=== PATIENT | male | born 1955 | race Caucasian/White ===

== ENCOUNTER 2020-03-01 10:20 | Inpatient (IN) ==
[2020-03-01] MEDS ORDERED: SODIUM CHLORIDE 0.9% 1000ML 1,000 ML IV ONE (11:38)
--- NOTE | 2020-03-01 11:46 | Emergency Department Note ---
History of Present Illness General Chief complaint: Throat Pain Stated complaint: SENT BY NICKI HUGHES ZANA-TONSILLAR ABCESS Time Seen by Provider: 03/01/20 11:28 Source: patient and family ( who is at the bedside) Mode of arrival: ambulatory Limitations: no limitations History of Present Illness Maximum Pain Intensity: 5 This patient comes in after having a sore throat since Friday. He saw his doctor on Friday and was started on Flomax for possible allergies. he has not been able to eat or drink much since then because it hurts. He is not been drooling he has no shortness of breath or systemic complaints. No rash or hives. No nausea or vomiting. No fever or chills. No known covert exposure or flulike symptoms or aches. His is at the bedside and she has been well. No chest pain shortness of breath or cough. He does have a history of peritonsillar abscess several years ago and when he saw his doctor today he was sent up here for possible peritonsillar abscess Home Medications Home Medications Medication Instructions Recorded Confirmed Type aspirin 81 mg PO QAM 05/18/19 03/01/20 History lisinopril 20 mg PO BID 05/18/19 03/01/20 History meloxicam 15 mg PO DAILY PRN 05/18/19 03/01/20 History nitroglycerin [Nitrostat] 0.4 mg SUBLINGUAL UD PRN 05/18/19 03/01/20 History atorvastatin 80 mg PO PM 03/01/20 03/01/20 History carvedilol 6.25 mg PO BID 03/01/20 03/01/20 History fluticasone propionate 2 spray INTRANASAL DAILY 03/01/20 03/01/20 History sildenafil (pulm.hypertension) 20 mg PO UD PRN 03/01/20 03/01/20 History [Revatio] amoxicillin-pot clavulanate 1 tab PO Q12H #20 tab 03/02/20 Rx [Augmentin] methylprednisolone [Medrol (Ra)] 4 mg PO UD #21 ea 03/02/20 Rx Allergies Allergy/AdvReac Type Severity Reaction Status Date / Time No Known Allergies Allergy Unverified 03/01/20 12:28 Past Med/Surg History Medical History CAD (coronary artery disease) Hyperlipidemia Hypertension Osteoarthritis Surgical History History of arthroscopy of left shoulder History of cardiac cath 01/2009 -- C/O CHEST DISCOMFORT AND HAD STRESS TEST, THEN HEART CATH WITH 2 STENTS. 2014 -- ENZYMES ELEVATED AND SENT FOR ANOTHER HEART CATH ([facility]) AND IT WAS NORMAL. FOLLOW WITH DR AMY ALFONSO. STRESS TEST - 04/2019 AND BLOOD PRESSURE WAS ELEVATED AND INCREASE BP MEDS. History of heart artery stent 01/2009 -- C/O CHEST DISCOMFORT AND HAD STRESS TEST, THEN HEART CATH WITH 2 STENTS. 2014 -- ENZYMES ELEVATED AND SENT FOR ANOTHER HEART CATH ([facility]) AND IT WAS NORMAL. FOLLOW WITH DR AMY ALFONSO. STRESS TEST - 04/2019 AND BLOOD PRESSURE WAS ELEVATED AND INCREASE BP MEDS. Hx of colonoscopy Hx of vasectomy Family History Father Coronary heart disease Hypertension Grandmother Diabetes Social History Smoking Status: Never smoker Second Hand Exposure: No; Hx Alcohol Use: No Hx Substance Use: No Preferred Language: Central African Communication Ability: Effective Retail Product Demo Specialist Required: No Beliefs That Will Affect Care: None Current Living Situation: Spouse Feels Safe at Home: Yes Review of Systems A total of 10 systems reviewed and were otherwise negative Physical Exam Vital Signs Vital Signs - 24 hr 03/01/20 10:36 03/01/20 12:10 03/01/20 12:30 Temperature 37.2 C Temperature Source Oral Pulse Rate 72 70 Pulse Rate [Apical] 63 Pulse Rate from SpO2 Sensor 70 Pulse Rhythm Regular Pulse Strength Normal Respiratory Rate 18 18 20 Respiratory Effort / Characteristics Non-Labored Respiratory Depth Normal Respiratory Pattern Regular Blood Pressure 198/80 H 146/84 H Blood Pressure [Right Arm] 152/82 H Blood Pressure Mean 119 109 Blood Pressure Mean [Right Arm] 105 Blood Pressure Position Sitting Pulse Oximetry 98 98 97 Oxygen Delivery Method Room Air Room Air Sepsis Recent Fever Within 48 Hours No Sepsis New/Unexplained Change in Mental Status No Sepsis Action Taken by Nursing No Action Required 03/01/20 13:30 03/01/20 14:01 03/01/20 14:02 Temperature Temperature Source Pulse Rate 80 70 Pulse Rate [Apical] 70 Pulse Rate from SpO2 Sensor Pulse Rhythm Pulse Strength Respiratory Rate 23 22 16 Respiratory Effort / Characteristics Respiratory Depth Respiratory Pattern Blood Pressure 179/91 H Blood Pressure [Right Arm] 179/91 H Blood Pressure Mean 123 Blood Pressure Mean [Right Arm] 120 Blood Pressure Position Pulse Oximetry Oxygen Delivery Method Sepsis Recent Fever Within 48 Hours Sepsis New/Unexplained Change in Mental Status Sepsis Action Taken by Nursing 03/01/20 14:31 03/01/20 15:00 Temperature Temperature Source Pulse Rate 74 77 Pulse Rate [Apical] Pulse Rate from SpO2 Sensor Pulse Rhythm Pulse Strength Respiratory Rate 22 19 Respiratory Effort / Characteristics Respiratory Depth Respiratory Pattern Blood Pressure 156/91 H 157/97 H Blood Pressure [Right Arm] Blood Pressure Mean 124 111 Blood Pressure Mean [Right Arm] Blood Pressure Position Pulse Oximetry Oxygen Delivery Method Sepsis Recent Fever Within 48 Hours Sepsis New/Unexplained Change in Mental Status Sepsis Action Taken by Nursing General: Well developed well nourished [id number] middle-age male who appears in no acute distress, breathing comfortably on room air. Normal speech HEENT: Normal cephalic atraumatic. Pupils are equal round and reactive to light. Sclera anicteric. Extraocular movements are intact. Oropharynx is pink with moist mucous membranes. No swelling of the mouth lips or tongue. In the posterior oropharynx he has swelling mostly on the right but the uvula is also mildly swollen. The airway appears open there is no midline shift but there is asymmetrical swelling on the right. Findings are consistent concerning for peritonsillar abscess. Floor the mouth is soft. No evidence of Ray's angina Neck: Supple with a midline trachea. No meningeal signs or stiffness, no JVD or bruits. No Stridor. Chest: Clear to auscultation bilaterally. No wheezes or rhonchi. No increased work of breathing. Heart: Regular rate and rhythm without murmurs or gallops. Abdomen: Soft nontender, nondistended without rebound guarding or rigidity. Extremities: No cyanosis clubbing or edema. No calf tenderness or assymetry Spine/Back. Non tender to palpation. No CVA tenderness Skin: Good turgor without rashes. Neurologic exam: Cranial nerves two through 12 are intact. Motor and sensation are intact and symmetrical throughout. Course Administered Medications Discontinued Medications Aspirin (Aspirin 81 Mg Chew) 81 mg PO QAM LULY Stop: 04/01/20 08:59 Last Admin: 03/02/20 07:54 Dose: 81 mg Documented by: [id number] Atorvastatin Calcium (Atorvastatin 40 Mg Tab) 80 mg PO PM LULY Stop: 03/31/20 20:59 Last Admin: 03/01/20 20:36 Dose: 80 mg Documented by: [id number] Carvedilol (Carvedilol 6.25 Mg Tab) 6.25 mg PO BID LULY Stop: 03/31/20 20:59 Last Admin: 03/02/20 07:53 Dose: 6.25 mg Documented by: [id number] Admin: 03/01/20 20:36 Dose: 6.25 mg Documented by: [id number] Dexamethasone (Dexamethasone Sod Inj 10 Mg/Ml Vial) 10 mg IV NOW ONE Stop: 03/01/20 11:50 Last Admin: 03/01/20 12:06 Dose: 10 mg Documented by: [id number] Sodium Chloride (Nss 1000ml) 1,000 mls @ 999 mls/hr IV .Q1H1M ONE Stop: 03/01/20 12:38 Last Infusion: 03/01/20 13:07 Dose: 0 mls/hr Documented by: [id number] Admin: 03/01/20 12:06 Dose: 999 mls/hr Documented by: [id number] Ampicillin Sodium/Sulbactam Sodium 3,000 mg/ Sodium Chloride 108 mls @ 200 mls/hr IV NOW STA; Protocol Stop: 03/01/20 14:28 Last Infusion: 03/01/20 14:56 Dose: 0 mls/hr Documented by: [id number] Admin: 03/01/20 14:23 Dose: 200 mls/hr Documented by: [id number] Ampicillin Sodium/Sulbactam Sodium 3,000 mg/ Sodium Chloride 108 mls @ 200 mls/hr IV Q6H LULY; Protocol Stop: 03/11/20 19:59 Last Infusion: 03/02/20 09:06 Dose: 0 mls/hr Documented by: [id number] Admin: 03/02/20 07:53 Dose: 200 mls/hr Documented by: [id number] Infusion: 03/02/20 02:30 Dose: 0 mls/hr Documented by: [id number] Admin: 03/02/20 01:46 Dose: 200 mls/hr Documented by: [id number] Infusion: 03/01/20 21:08 Dose: 0 mls/hr Documented by: [id number] Admin: 03/01/20 20:35 Dose: 200 mls/hr Documented by: [id number] Sodium Chloride (Nss 1000ml) 1,000 mls @ 100 mls/hr IV .Q10H [facility] Stop: 03/02/20 13:14 Last Admin: 03/02/20 04:06 Dose: 100 mls/hr Documented by: [id number] Infusion: 03/02/20 03:33 Dose: 100 mls/hr Documented by: [id number] Admin: 03/01/20 17:33 Dose: 100 mls/hr Documented by: [id number] Dexamethasone Sodium Phosphate (10 mg/ Dextrose) 27.5 mls @ 100 mls/hr IV Q8H [facility] Stop: 03/31/20 19:59 Last Infusion: 03/02/20 05:19 Dose: 0 mls/hr Documented by: [id number] Admin: 03/02/20 04:58 Dose: 100 mls/hr Documented by: [id number] Infusion: 03/01/20 22:18 Dose: 0 mls/hr Documented by: [id number] Admin: 03/01/20 21:48 Dose: 100 mls/hr Documented by: [id number] Ioversol (Ioversol 100ml) 94 ml IV ONCE ONE Stop: 03/01/20 13:16 Last Admin: 03/01/20 13:16 Dose: 94 ml Documented by: [id number] Lisinopril (Lisinopril 20 Mg Tab) 20 mg PO BID [facility] Stop: 03/31/20 20:59 Last Admin: 03/02/20 07:54 Dose: 20 mg Documented by: [id number] Admin: 03/01/20 20:36 Dose: 20 mg Documented by: [id number] Medical Decision Making Differential Diagnosis Peritonsillar abscess, allergic reaction, cellulitis, tonsillitis, electrolyte or metabolic abnormality Medical Records Attestation: I reviewed the patient's medical records. Home Medications Current Medication List: was personally reviewed by me Laboratory Data Attestation: I reviewed the patient's lab results. Result diagrams: 03/02/20 06:46 03/02/20 06:46 Lab Results 03/01/20 03/01/20 03/01/20 Range/Units 12:08 12:08 12:08 WBC 11.19 H (4.8-10.8) K/uL RBC 5.05 (4.7-6.1) M/uL Hgb 15.5 (14.0-18.0) g/dL Hct 45.3 (42-52) % MCV 89.7 (80-100) fL MCH 30.7 (25-34) pg MCHC 34.2 (32-36) g/dL RDW Std Deviation 45.4 (36.4-46.3) fL RDW Coeff of Sukhjinder 13.9 (11.5-14.5) % Plt Count 197 (130-400) K/uL MPV 9.7 (7.4-10.4) fL Immature Gran % (Auto) 0.3 % Neut % (Auto) 74.5 % Lymph % (Auto) 14.2 % [place] % (Auto) 8.4 % Eos % (Auto) 2.4 % Baso % (Auto) 0.2 % Neut # (Auto) 8.34 H (1.4-6.5) K/uL Lymph # (Auto) 1.59 (1.2-3.4) K/uL [place] # (Auto) 0.94 H (0.11-0.59) K/uL Eos # (Auto) 0.27 (0-0.5) K/uL Baso # (Auto) 0.02 (0-0.2) K/uL Immature Gran # (Auto) 0.03 H (0.00-0.02) K/uL Sodium 137 (136-145) mmol/L Potassium 4.3 (3.5-5.1) mmol/L Chloride 104 (98-107) mmol/L Carbon Dioxide 27 (21-32) mmol/L Anion Gap 6.0 (3-11) BUN 17 (7-18) mg/dl Creatinine 1.20 (0.6-1.4) mg/dl Est Cr Clr Drug Dosing 60.3 ml/min Est GFR ( Amer) 73.1 Est GFR (Non-Af Amer) 63.1 BUN/Creatinine Ratio 14.4 (10-20) Glucose 99 (70-99) mg/dl Calcium 9.2 (8.5-10.1) mg/dl Total Bilirubin 2.4 H (0.2-1) mg/dl AST 19 (15-37) U/L ALT 23 (12-78) U/L Alkaline Phosphatase 131 H (45-117) U/L Total Protein 8.4 H (6.4-8.2) gm/dl Albumin 3.7 (3.4-5.0) gm/dl Globulin 4.7 H (2.5-4.0) gm/dl Albumin/Globulin Ratio 0.8 L (0.9-2) Monoscreen Negative (Negative) Imaging Data Radiologist's Impression: Study: CT soft tissue neck HISTORY:: Peritonsillar abscess COMPARISON: None. FINDINGS: The major salivary glands including parotid and submandibular glands are unremarkable. There is significant edematous change in the right peritonsillar region. There is a 1.1 x 0.9 cm mass collection versus small abscess within the central aspect of the edematous change. There is mild displacement of the airway to the left. There does not appear to be major compromise of the airway itself. All structures of the remainder of the soft tissue neck are considered unremark able. The glottic and subglottic regions are unremarkable. There are several small reactive nodes in the cervical chains bilaterally. The pulmonary apices are considered clear. IMPRESSION: 1. Considerable right peritonsillar edematous change with mild displacement of the airway to the left. 2. Small abscess located centrally within this edematous region measuring 1.1 x 0.9 cm. Blood Pressure Blood Pressure Findings: Elevated blood pressure Blood Pressure Disposition: elevated BP felt to be situational MDM Narrative This patient comes in as described above. He was placed in room C4. He looks well however his exam is concerning for possible peritonsillar abscess. In light of this concern, IV access was established and he was hydrated with with normal saline. He was given Decadron 10 mg IV and CAT scan was obtained as well as blood work. He has no significant electrolyte or metabolic abnormalities. Monospot was negative. His CAT scan does show a small peritonsillar abscess measuring 1.1 x 0.9 cm. I did consult Dr. Worthy who is the [facility] ENT physician. She recommends a medical admission. She also recommends continuing IV Unasyn additionally continue Decadron 10 mg IV every 8 hours x3. She said the patient can also eat and drink and does not have to be n.p.o. after midnight. She suspects that given these measures that the patient will in all likelihood not need surgical intervention but she can drain it if he does not get better or gets worse. Given the fact that the patient may need ENT surgery while he is admitted, she is also requested a Covid test which I ordered. COVID testing was negative[facility], IV antibiotics, observation and ENT consultation Impression & Plan Abscess, peritonsillar, Acute sore throat, Acute dehydration, Lab test negative for COVID-19 virus Discharge Plan Visit Data Chief Complaint: Throat Pain Stated Complaint: SENT BY NICKI HUGHES ZANA-TONSILLAR DEION ED Provider: Olivier Troncoso Discharge Problem: Abscess, peritonsillar, Acute sore throat, Acute dehydration, Lab test negative for COVID-19 virus Patient Disposition: Admitted As Inpatient Discharge Instructions Interventions: ED Discharge Assessment Last Done: 03/01/20 16:27
[2020-03-01] MEDS ORDERED: DEXAMETHASONE SOD INJ 10 MG/ML VIAL IV ONE (11:49)
[2020-03-01 12:25] LABS: Basophils # (auto) 0.02 K/uL (0-0.2); Basophils % (auto) 0.2 %; Eosinophils # (auto) 0.27 K/uL (0-0.5); Eosinophils % (auto) 2.4 %; Hematocrit (blood only) 45.3 % (42-52); Hemoglobin 15.5 g/dL (14.0-18.0); Immature Granulocytes # (auto) 0.03 K/uL (0.00-0.02); Immature Granulocytes % (auto) 0.3 %; Lymphocytes # (auto) 1.59 K/uL (1.2-3.4); Lymphocytes % (auto) 14.2 %; Mean Corpuscular Hemoglobin 30.7 pg (25-34); Mean Corpuscular Hgb Conc 34.2 g/dL (32-36); Mean Corpuscular Volume 89.7 fL (80-100); Mean Platelet Volume 9.7 fL (7.4-10.4); Monocytes # (auto) 0.94 K/uL (0.11-0.59); Monocytes % (auto) 8.4 %; Neutrophils # (auto) 8.34 K/uL (1.4-6.5); Neutrophils % (auto) 74.5 %; Platelet Count 197 K/uL (130-400); RDW Coefficient of Variation 13.9 % (11.5-14.5); RDW Standard Deviation 45.4 fL (36.4-46.3); Red Blood Count 5.05 M/uL (4.7-6.1); White Blood Count 11.19 K/uL (4.8-10.8)
[2020-03-01 12:41] LABS: Albumin Level 3.7 gm/dl (3.4-5.0); BUN Creatinine Ratio 14.4 (10-20); Calcium 9.2 mg/dl (8.5-10.1); Creatinine Clr Calc Pharmacy 60.3 ml/min; Est GFR (African American) 73.1; Est GFR (Non-African American) 63.1; Potassium 4.3 mmol/L (3.5-5.1)
[2020-03-01 12:44] LABS: Albumin Globulin Ratio 0.8 (0.9-2); Bilirubin,Total 2.4 mg/dl (0.2-1); Globulin 4.7 gm/dl (2.5-4.0); Total Protein 8.4 gm/dl (6.4-8.2)
[2020-03-01] MEDS ORDERED: IOVERSOL 100ml IV ONE (13:15)
--- NOTE | 2020-03-01 13:33 | CT Scan Report ---
Study: CT soft tissue neck HISTORY:: Peritonsillar abscess COMPARISON: None. FINDINGS: The major salivary glands including parotid and submandibular glands are unremarkable. There is significant edematous change in the right peritonsillar region. There is a 1.1 x 0.9 cm mass collection versus small abscess within the central aspect of the edematous change. There is mild displacement of the airway to the left. There does not appear to be major compromise of the airway itself. All structures of the remainder of the soft tissue neck are considered unremarkable. The glottic and subglottic regions are unremarkable. There are several small reactive nodes in the cervical chains bilaterally. The pulmonary apices are considered clear. IMPRESSION: 1. Considerable right peritonsillar edematous change with mild displacement of the airway to the left . 2. Small abscess located centrally within this edematous region measuring 1.1 x 0.9 cm. Electronically signed by: Jaime Austin M.D. 03/01/2020 1:32 PM
[2020-03-01] MEDS ORDERED: AMPICILLIN/SULBACTAM SOD 3,000 MG in 0.9 % SODIUM CHLORIDE 100 ML IV STA (13:56)
--- NOTE | 2020-03-01 15:36 | History & Physical Report ---
Date of Service March 01, 2020 Assessment & Plan (1) Abscess, peritonsillar: Pt is 64 y/o M with PMH CAD s/p stent in 2008, HTN, dyslipidemia presented to ER with c/o sore throat x several days. Patient states several days ago started with sore throat with radiation to right ear and having right earache. Initially seen at PCP on 02/28/2020 with reported benign exam and pt had worsening sore throat and dysphagia and seen today and referred to ER. Denies fever/chills. In ER pt afebrile, vitals stable. Pt tolerating secretions and without SOB. WBC: 11 CT SOFT TISSUE NECK: 1. Considerable right peritonsillar edematous change with mild displacement of the airway to the left. 2. Small abscess located centrally within this edematous region measuring 1.1 x 0.9 cm. (2) CAD (coronary artery disease): (3) Hypertension: (4) Hyperlipidemia: History of Present Illness Chief Complaint: Sore throat Primary Care Provider: Torito Perez MD Pt is 64 y/o M with H CAD s/p stent in 2008, HTN, dyslipidemia presented to ER with c/o sore throat x several days. Patient states several days ago started with sore throat with radiation to right ear and having right earache. Was seen at PCP office 02/28/2020 and was given Flonase. Patient states sore throat got worse and was having painful and difficulty swallowing. States past 2 days has not been eating or drinking much secondary to dysphagia. He has been taking his medications. Seen at PCPs office today and there was concern for peritonsillar abscess and patient was referred to ER. Patient denies any fever, chills, rhinorrhea, shortness of breath, chest pain. He reports history peritonsillar abscess 5-6 years ago requiring I&D. Denies fever/chills, diaphoresis, N/V/D/C, RAMIREZ, dizziness, syncope, vision changes, neck pain, CP, SOB, orthopnea, palpitations, cough, ear discharge, abdominal pain, paresthesias, weakness, extremity weakness, extremity edema, rashes, urinary symptoms. In ER patient had CT soft tissue neck revealing 1 cm right peritonsillar abscess. Patient received Unasyn, dexamethasone, IV fluids. Patient reports significant decrease in sore throat and dysphagia since being in ER. ENT was notified and patient will be admitted for further observation and treatment. Allergies Allergy/AdvReac Type Severity Reaction Status Date / Time No Known Allergies Allergy Unverified 03/01/20 12:28 Home Medications Home Medications Medication Instructions Recorded Confirmed Type aspirin 81 mg PO QAM 05/18/19 03/01/20 History lisinopril 20 mg PO BID 05/18/19 03/01/20 History meloxicam 15 mg PO DAILY PRN 05/18/19 03/01/20 History nitroglycerin [Nitrostat] 0.4 mg SUBLINGUAL UD PRN 05/18/19 03/01/20 History atorvastatin 80 mg PO PM 03/01/20 03/01/20 History carvedilol 6.25 mg PO BID 03/01/20 03/01/20 History fluticasone propionate 2 spray INTRANASAL DAILY 03/01/20 03/01/20 History sildenafil (pulm.hypertension) 20 mg PO UD PRN 03/01/20 03/01/20 History [Revatio] Past Med/Surg History Medical History (Updated 03/01/20 @ 16:02 by Amy Ruiz PA-C) CAD (coronary artery disease) Hyperlipidemia Hypertension Osteoarthritis Surgical History History of arthroscopy of left shoulder History of cardiac cath 01/2009 -- C/O CHEST DISCOMFORT AND HAD STRESS TEST, THEN HEART CATH WITH 2 STENTS. 2014 -- ENZYMES ELEVATED AND SENT FOR ANOTHER HEART CATH ([facility]) AND IT WAS NORMAL. FOLLOW WITH DR AMY ALFONSO. STRESS TEST - 04/2019 AND BLOOD PRESSURE WAS ELEVATED AND INCREASE BP MEDS. History of heart artery stent 01/2009 -- C/O CHEST DISCOMFORT AND HAD STRESS TEST, THEN HEART CATH WITH 2 STENTS. 2014 -- ENZYMES ELEVATED AND SENT FOR ANOTHER HEART CATH ([facility]) AND IT WAS NORMAL. FOLLOW WITH DR AMY ALFONSO. STRESS TEST - 04/2019 AND BLOOD PRESSURE WAS ELEVATED AND INCREASE BP MEDS. Hx of colonoscopy Hx of vasectomy Family History Father Coronary heart disease Hypertension Grandmother Diabetes Social History Smoking Status: Never smoker Second Hand Exposure: No; Do You Dip or Chew Tobacco: No; Tobacco Cessation Education Requested by Patient: No Hx Alcohol Use: No Hx Substance Use: No Preferred Language: Welsh Communication Ability: Effective Senior Financial Reporting Analyst Required: No Beliefs That Will Affect Care: None Current Living Situation: Spouse Other Information That Helps Us Care for You: No Feels Safe at Home: Yes Safety Concerns: Feels Safe At This Time Review of Systems Review of Systems: All systems reviewed & are unremarkable except as noted in HPI & below Physical Exam Physical Exam: General: no distress, WDWN Head: normocephalic, atraumatic Eyes: PERRL, EOM's intact, conjunctiva non-injected, anicteric ENT: normal inspection external ears, nose, oropharynx: +erythema and edema to right tonsil with mild fullness and +erythema to right soft palate, uvula midline, mucous membranes moist Neck: supple, trachea midline, +lymphadenopathy R anterior cervical and submandibular nodes with tenderness to palpation; ROM neck intact Lungs: clear, no respiratory distress, no wheezing/rhonchi/rales CV: RRR, no murmur, no pretibial edema Abd: normal BS, soft, non-tender Ext: no cyanosis, no calf tenderness Neuro: A&O x 3, no focal deficits noted, normal affect Skin: warm, dry Results & Data Results & Data ([facility]) Vital Signs (Past 12 Hours) Vital Signs Temp Pulse Pulse Resp BP BP Pulse Ox 03/01/20 15:30 74 16 156/84 H 03/01/20 15:00 77 19 157/97 H 03/01/20 14:31 74 22 156/91 H 03/01/20 14:02 70 16 179/91 H 03/01/20 14:01 70 22 179/91 H 03/01/20 13:30 80 23 03/01/20 12:30 70 20 146/84 H 97 03/01/20 12:10 63 18 152/82 H 98 03/01/20 10:36 37.2 C 72 18 198/80 H 98 Laboratory Results Short CBC 03/01/20 03/01/20 Range/Units 12:08 12:08 WBC 11.19 H (4.8-10.8) K/uL Hgb 15.5 (14.0-18.0) g/dL Hct 45.3 (42-52) % Plt Count 197 (130-400) K/uL Total Bilirubin 2.4 H (0.2-1) mg/dl Alkaline Phosphatase 131 H (45-117) U/L BMP 03/01/20 12:08 Sodium 137 Potassium 4.3 Chloride 104 Carbon Dioxide 27 BUN 17 Creatinine 1.20 Glucose 99 Calcium 9.2 Liver Function 03/01/20 Range/Units 12:08 Total Bilirubin 2.4 H (0.2-1) mg/dl AST 19 (15-37) U/L ALT 23 (12-78) U/L Alkaline Phosphatase 131 H (45-117) U/L Albumin 3.7 (3.4-5.0) gm/dl Diagnostic Findings CT SOFT TISSUE NECK: IMPRESSION: 1. Considerable right peritonsillar edematous change with mild displacement of the airway to the left. 2. Small abscess located centrally within this edematous region measuring 1.1 x 0.9 cm. Code Status & VTE Plan VTE Prophylaxis Plan VTE Prophylaxis will be ordered: Yes Supervising Physician Co-Signing Physician Notes Attending Addendum: care coordinated with EREN William please refer to her notes for full details, I agree with her notes patient seen and examined, records reviewed by myself as well on exam, patient seen sitting up in bed, comfortable states his throat feels better, able to tolerate clear liquids for dinner well no shortness of breath no other symptoms VS noted and reviewed oriented x 3, not in distress, speaks in sentences with no effort nor accessory muscle use ENT: (+) significant edema of the right tonsillar region no stridor normal rate, regular rhythm, no murmurs clear breath sounds bilaterally non distended, soft, nontender no bipedal edema, erythema, warmth no neuro deficits WBC 11.19 Hg [address] neck: 1. Considerable right peritonsillar edematous change with mild displacement of the airway to the left. 2. Small abscess located centrally within this edematous region measuring 1.1 x 0.9 cm. ASSESSMENT AND PLAN PERITONSILLAR ABSCESS respiratory status stable Unasyn, Decadron q8h ENT consulted HISTORY OF CAD no cardiac symptoms continue usual medications other diagnoses and plan of care as per EREN William notes Lupillo Whitfield MD
[2020-03-01] MEDS ORDERED: ACETAMINOPHEN 325 MG TAB PO PRN (17:15)
[2020-03-01] MEDS ORDERED: NITROGLYCERIN SL 0.4 MG/TAB TAB SL PRN (17:15)
[2020-03-01] MEDS: SODIUM CHLORIDE 0.9% 1000ML 1,000 ML IV SCH (17:33)
[2020-03-01] MEDS ORDERED: dexAMETHasone 10 MG in DEXTROSE 5% 25 ML IV SCH (20:00)
[2020-03-01] MEDS: AMPICILLIN/SULBACTAM SOD 3,000 MG in 0.9 % SODIUM CHLORIDE 100 ML IV SCH (20:35)
[2020-03-01] MEDS: carvediloL 6.25 MG TAB PO SCH (20:36)
[2020-03-01] MEDS: lisinopriL 20 MG TAB PO SCH (20:36)
[2020-03-01] MEDS ORDERED: ATORVASTATIN 40 MG TAB PO SCH (21:00)
[2020-03-01] MEDS: DEXAMETHASONE SOD PHOSPHATE IV SCH (21:48)
[2020-03-01] MEDS: DEXTROSE 5% IV SCH (21:48)
[2020-03-02] MEDS: AMPICILLIN/SULBACTAM SOD 3,000 MG in 0.9 % SODIUM CHLORIDE 100 ML IV SCH ×2 (01:46→07:53)
[2020-03-02] MEDS: SODIUM CHLORIDE 0.9% 1000ML 1,000 ML IV SCH (04:06)
[2020-03-02] MEDS: DEXAMETHASONE SOD PHOSPHATE IV SCH (04:58)
[2020-03-02] MEDS: DEXTROSE 5% IV SCH (04:58)
[2020-03-02 06:56] LABS: Hematocrit (blood only) 42.6 % (42-52); Hemoglobin 14.7 g/dL (14.0-18.0); Immature Granulocytes # (auto) 0.02 K/uL (0.00-0.02); Immature Granulocytes % (auto) 0.2 %; Lymphocytes # (auto) 0.94 K/uL (1.2-3.4); Lymphocytes % (auto) 7.7 %; Mean Corpuscular Hemoglobin 30.3 pg (25-34); Mean Corpuscular Hgb Conc 34.5 g/dL (32-36); Mean Corpuscular Volume 87.8 fL (80-100); Mean Platelet Volume 9.7 fL (7.4-10.4); Monocytes # (auto) 0.21 K/uL (0.11-0.59); Monocytes % (auto) 1.7 %; Neutrophils # (auto) 11.07 K/uL (1.4-6.5); Neutrophils % (auto) 90.4 %; Platelet Count 191 K/uL (130-400); RDW Coefficient of Variation 13.6 % (11.5-14.5); RDW Standard Deviation 43.7 fL (36.4-46.3); Red Blood Count 4.85 M/uL (4.7-6.1); White Blood Count 12.24 K/uL (4.8-10.8)
[2020-03-02 07:30] LABS: BUN Creatinine Ratio 19.7 (10-20); Calcium 8.3 mg/dl (8.5-10.1); Creatinine Clr Calc Pharmacy 72.6 ml/min; Est GFR (African American) 91.1; Est GFR (Non-African American) 78.6; Potassium 4.2 mmol/L (3.5-5.1)
[2020-03-02] MEDS: carvediloL 6.25 MG TAB PO SCH (07:53)
--- NOTE | 2020-03-02 07:53 | ENT Consultation ---
Date of Consultation March 02, 2020 Assessment & Plan (1) Peritonsillar abscess: The patient has the history clinically consistent with a small right peritonsillar abscess. He has improved markedly on IV antibiotics and steroids. I see no drainable fluid collection on CT imaging or on my exam clinically today. I discussed with the patient that peritonsillar abscesses are unusual in his age group and the differential does include tonsillar malignancy, although his history, time course of symptoms, and imaging are not suggestive of this. 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 My office will contact patient to set up appt -Patient counseled to call or seek emergency care with worsening symptoms History of Present Illness Attending Physician: Lupillo Whitfield MD History of Present Illness 64-year-old male with history of prior peritonsillar abscess requiring I&D 5-[address] Lamas now presenting with right sore throat. Patient describes a right-sided sore throat with associated right-sided otalgia beginning 4 days ago. Initially seen by urgent care and treated for allergies with Flonase. His right-sided sore throat continued to worsen over the next several days and he developed significant odynophagia. He thus presented to his primary care physician who was concern for peritonsillar abscess. He was directed to the [facility] ED yesterday where CT neck with contrast showed significant inflammation of the right tonsil with an approximately 1 cm rim enhancing fluid collection in the right peritonsillar space. WBC 11. He was treated with Unasyn and Decadron with significant improvement and admitted for further observation. He notes marked improvement in his symptoms with treatment with IV antibiotics and steroids. He still has some minor right-sided throat pain but is able to manage his secretions easily and was able to eat dinner last night. He denies chronic sore throat, dysphagia, otalgia. He is a never smoker Allergies Allergy/AdvReac Type Severity Reaction Status Date / Time No Known Allergies Allergy Unverified 03/01/20 12:28 Home Medications Home Medications Medication Instructions Recorded Confirmed Type aspirin 81 mg PO QAM 05/18/19 03/01/20 History lisinopril 20 mg PO BID 05/18/19 03/01/20 History meloxicam 15 mg PO DAILY PRN 05/18/19 03/01/20 History nitroglycerin [Nitrostat] 0.4 mg SUBLINGUAL UD PRN 05/18/19 03/01/20 History atorvastatin 80 mg PO PM 03/01/20 03/01/20 History carvedilol 6.25 mg PO BID 03/01/20 03/01/20 History fluticasone propionate 2 spray INTRANASAL DAILY 03/01/20 03/01/20 History sildenafil (pulm.hypertension) 20 mg PO UD PRN 03/01/20 03/01/20 History [Revatio] Patient History Medical History CAD (coronary artery disease) Hyperlipidemia Hypertension Osteoarthritis Surgical History History of arthroscopy of left shoulder History of cardiac cath 01/2009 -- C/O CHEST DISCOMFORT AND HAD STRESS TEST, THEN HEART CATH WITH 2 STENTS. 2014 -- ENZYMES ELEVATED AND SENT FOR ANOTHER HEART CATH ([facility]) AND IT WAS NORMAL. FOLLOW WITH DR AMY ALFONSO. STRESS TEST - 04/2019 AND BLOOD PRESSURE WAS ELEVATED AND INCREASE BP MEDS. History of heart artery stent 01/2009 -- C/O CHEST DISCOMFORT AND HAD STRESS TEST, THEN HEART CATH WITH 2 STENTS. 2014 -- ENZYMES ELEVATED AND SENT FOR ANOTHER HEART CATH ([facility]) AND IT WAS NORMAL. FOLLOW WITH DR AMY ALFONSO. STRESS TEST - 04/2019 AND BLOOD PRESSURE WAS ELEVATED AND INCREASE BP MEDS. 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 MANAGING SECRETIONS EASILY Head and Face: Skull: No obvious deformities Sinus tenderness: There is no tenderness to palpation of the sinuses. Salivary glands: The parotid and submandibular glands are normal in appearance and there are no masses on palpation. Facial strength: Facial motion is symmetric and without weakness. Eyes: Eyelids: There is no periorbital edema. Conjunctiva: There is no conjunctival erythema. Pupils: The pupils are equal, round, and reactive to light. Extraocular muscles: Extraocular movement is normal. Nystagmus: There is no nystagmus. Ears: Right auricle: The pinna is normally formed without skin lesion or mass. Left auricle: The pinna is normally formed without skin lesion or mass. Hearing: Clinical speech supply chain coordinator threshold testing is grossly normal. Nose: External: There is no gross external deformity, tenderness, or skin lesion or mass. Mucosa: There is no nasal mucosal edema, inflammation, lesion, or mass. Septum: The nasal septum is midline. Nasal cavity: There is no inferior turbinate hypertrophy, edema, inflammation, or mass bilaterally. The inferior meatus and middle meatus were clear bilaterally without mass, lesion, mucopurulence, or polyposis. Oral cavity/Oropharynx: Lips: There are no lip lesions or masses. Oral cavity: There is no inflammation, lesion, or mass involving the gums, gingiva, floor of mouth, buccal mucosa, retromolar trigone, hard palate, soft palate, tongue. Dentition is intact. THERE IS NO SIGNIFICANT TRISMUS Oropharynx: [id number] RIGHT TONSILLAR INFLAMMATION AND ERYTHEMA WITH HYPEREMIA. NO SOFT PALATE FULLNESS OR UVULAR DEVIATION. NO ULCERATION OR EXOPHYTIC MASS. TONSIL IS SOMEWHAT TENDER AND MILDLY FIRM TO PALPATION WITHOUT DISCRETE NODULE OR MASS. Neck: General: There are no visible scars or lesions involving the neck. There are no visible or palpable masses involving the neck. The trachea is midline. Lymph nodes: There is no visible or palpable neck lymphadenopathy. Thyroid: There is no visible or palpable thyroid enlargement or nodularity. Respiratory/Pulmonary: There is no stertor or stridor. There is normal respiratory effort without acute distress. Cardiovascular: There is no visible extremity edema. Skin: There are no visible lesions or masses involving the skin of the head and neck region. Neurological: Cranial nerves: Cranial nerve II is noted to be intact by grossly normal visual acuity. Cranial nerves III, IV, and are noted to be intact by normal extraocular movements. Cranial nerve V is noted to be intact by normal facial sensation. Cranial nerve VII is noted to be intact by symmetric and normal facial movement. Cranial nerve VIII is noted to be intact by a relatively normal clinical speech supply chain coordinator threshold. Cranial nerve IX is noted to be intact by an intact gag reflex and normal palatal movement. Cranial nerve X is noted to be intact by a normal voice. Cranial nerve XI is noted to be intact by normal shoulder and head movement. Cranial nerve XII is noted to be intact by normal symmetric tongue movement. Vestibular system: The patient has a normal gait. There is no spontaneous or gaze evoked nystagmus. Psychiatric: Mental status: The patient is awake and alert. Mood/affect: The patient has a normal mood and affect. NORMAL VOICE Results & Data ([facility]) Vital Signs (Past 12 Hours) Vital Signs Temp Pulse Pulse Resp BP Pulse Ox 03/02/20 07:43 36.6 C 76 18 156/98 H 96 03/02/20 07:31 67 03/02/20 05:30 67 03/02/20 02:54 36.5 C 73 16 117/73 98 03/01/20 23:00 36.5 C 72 16 136/68 95 PG Care Time/CCT Total # of Minutes Spent Total Time Spent with Patient: Total time spent is greater than 50% in coordination of care (as documented) at patient's floor/unit and/or counseling patient: Coding Level of Care Code 58166 Inpt Consult Level 4 Diagnoses Peritonsillar abscess J36
[2020-03-02] MEDS: lisinopriL 20 MG TAB PO SCH (07:54)
[2020-03-02] MEDS ORDERED: ASPIRIN 81 MG CHEW PO SCH (09:00)
--- NOTE | 2020-03-02 10:58 | Hospitalist Progress Note ---
Date of Service March 02, 2020 Assessment & Plan (1) Abscess, peritonsillar: per EREN William notes: Pt is 64 y/o M with PMH CAD s/p stent in 2008, HTN, dyslipidemia presented to ER with c/o sore throat x several days. Patient states several days ago started with sore throat with radiation to right ear and having right earache. Initially seen at PCP on 02/28/2020 with reported benign exam and pt had worsening sore throat and dysphagia and seen today and referred to ER. Denies fever/chills. In ER pt afebrile, vitals stable. Pt tolerating secretions and without SOB. WBC: 11 CT SOFT TISSUE NECK: 1. Considerable right peritonsillar edematous change with mild displacement of the airway to the left. 2. Small abscess located centrally within this edematous region measuring 1.1 x 0.9 cm. 2nd episode of tonsillar abscess evaluated by ENT Dr. Worthy placed on IV Zosyn, Decadron 10mg IV q8h symptoms significantly improved Dr. Worthy recommend Augmentin x 10 days, Medrol Dosepak ff up with ENT in 1-2 weeks, may need to consider tonsillectomy (2) CAD (coronary artery disease): no cardiac symptoms continue usual Carvedilol, Lisinopril, Aspirin (3) Hypertension: stable overall (4) Hyperlipidemia: continue Statin D/c home ff up with PCP next week ff up with ENT in 1-2 weeks plan of care discussed with patient in detail and at length all questions answered he is understanding, agreeable, comfortable with plan of care Admission and Anticipated Discharge Date Admission Date: March 01, 2020 Subjective ff up for tonsillar abscess seen resting in bed, comfortable, sitting up states he continues to feel better no throat pain, tolerating diet well no problems with breathing, cough, chest pin no other symptoms states he feels much better overall and would like to be discharged today Review of Systems Review of Systems: All systems reviewed & are unremarkable except as noted in HPI & below Physical Exam Physical Exam: General- oriented x 3, not in distress, speaks in sentences with no effort or accessory muscle use Eyes- anicteric Throat- mild right tonsillar swelling, no exudates, no deviation of uvula Neck- no JVD Lungs- clear breath sounds bilaterally, no rales/wheezes Heart- normal rate, regular rhythm; no murmurs Abdomen- normal bowel sounds, nondistended, soft, nontender Extremities- no pretibial edema, no calf tenderness Neuro- alert, oriented x 3; no gross focal neurologic deficits Skin- warm & dry Results & Data Results & Data ([facility]) Vital Signs (Past 12 Hours) Vital Signs Temp Pulse Pulse Resp BP Pulse Ox 03/02/20 10:50 36.6 C 76 18 156/98 H 96 03/02/20 07:43 36.6 C 76 18 156/98 H 96 03/02/20 07:31 67 03/02/20 05:30 67 03/02/20 02:54 36.5 C 73 16 117/73 98 03/01/20 23:00 36.5 C 72 16 136/68 95 Laboratory Results Laboratory Results - last 24 hr 03/02/20 03/02/20 06:46 06:46 WBC 12.24 H RBC 4.85 Hgb 14.7 Hct 42.6 MCV 87.8 MCH 30.3 MCHC 34.5 RDW Std Deviation 43.7 RDW Coeff of Sukhjinder 13.6 Plt Count 191 MPV 9.7 Immature Gran % (Auto) 0.2 Neut % (Auto) 90.4 Lymph % (Auto) 7.7 [place] % (Auto) 1.7 Eos % (Auto) 0.0 Baso % (Auto) 0.0 Neut # (Auto) 11.07 H Lymph # (Auto) 0.94 L [place] # (Auto) 0.21 Eos # (Auto) 0.00 Baso # (Auto) 0.00 Immature Gran # (Auto) 0.02 Sodium 139 Potassium 4.2 Chloride 110 H Carbon Dioxide 22 Anion Gap 7.0 BUN 20 H Creatinine 1.00 Est Cr Clr Drug Dosing 72.6 Est GFR ( Amer) 91.1 Est GFR (Non-Af Amer) 78.6 BUN/Creatinine Ratio 19.7 Glucose 163 H Calcium 8.3 L
--- NOTE | 2020-03-02 19:05 | Discharge Summary ---
Date of Service March 02, 2020 Admission HPI Per Admitting Provider Pt is 64 y/o M with PMH CAD s/p stent in 2008, HTN, dyslipidemia presented to ER with c/o sore throat x several days. Patient states several days ago started with sore throat with radiation to right ear and having right earache. Was seen at PCP office 02/28/2020 and was given Flonase. Patient states sore throat got worse and was having painful and difficulty swallowing. States past 2 days has not been eating or drinking much secondary to dysphagia. He has been taking his medications. Seen at PCPs office today and there was concern for peritonsillar abscess and patient was referred to ER. Patient denies any fever, chills, rhinorrhea, shortness of breath, chest pain. He reports history peritonsillar abscess 5-6 years ago requiring I&D. Denies fever/chills, diaphoresis, N/V/D/C, RAMIREZ, dizziness, syncope, vision changes, neck pain, CP, SOB, orthopnea, palpitations, cough, ear discharge, abdominal pain, paresthesias, weakness, extremity weakness, extremity edema, rashes, urinary symptoms. In ER patient had CT soft tissue neck revealing 1 cm right peritonsillar abscess. Patient received Unasyn, dexamethasone, IV fluids. Patient reports significant decrease in sore throat and dysphagia since being in ER. ENT was notified and patient will be admitted for further observation and treatment. Admission Exam Per Admitting Provider General: no distress, WDWN Head: normocephalic, atraumatic Eyes: PERRL, EOM's intact, conjunctiva non-injected, anicteric ENT: normal inspection external ears, nose, oropharynx: +erythema and edema to right tonsil with mild fullness and +erythema to right soft palate, uvula midline, mucous membranes moist Neck: supple, trachea midline, +lymphadenopathy R anterior cervical and submandibular nodes with tenderness to palpation; ROM neck intact Lungs: clear, no respiratory distress, no wheezing/rhonchi/rales CV: RRR, no murmur, no pretibial edema Abd: normal BS, soft, non-tender Ext: no cyanosis, no calf tenderness Neuro: A&O x 3, no focal deficits noted, normal affect Skin: warm, dry Principal Diagnosis RIGHT PERITONSILLAR ABSCESS Discharge Exam General- oriented x 3, not in distress, speaks in sentences with no effort or accessory muscle use Eyes- anicteric Throat- mild right tonsillar swelling, no exudates, no deviation of uvula Neck- no JVD Lungs- clear breath sounds bilaterally, no rales/wheezes Heart- normal rate, regular rhythm; no murmurs Abdomen- normal bowel sounds, nondistended, soft, nontender Extremities- no pretibial edema, no calf tenderness Neuro- alert, oriented x 3; no gross focal neurologic deficits Skin- warm & dry Discharge Data Allergies Allergy/AdvReac Type Severity Reaction Status Date / Time No Known Allergies Allergy Unverified 03/01/20 12:28 Consultations 03/01/20 14:49 ED Decision to Admit Stat 03/01/20 17:02 Consult Otolaryngology (Head and Neck) Routine Ordered Studies 03/01/20 11:38 CT soft tissue neck w con Stat FINDINGS: The major salivary glands including parotid and submandibular glands are unremarkable. There is significant edematous change in the right peritonsillar region. There is a 1.1 x 0.9 cm mass collection versus small abscess within the central aspect of the edematous change. There is mild displacement of the airway to the left. There does not appear to be major compromise of the airway itself. All structures of the remainder of the soft tissue neck are considered un remarkable. The glottic and subglottic regions are unremarkable. There are several small reactive nodes in the cervical chains bilaterally. The pulmonary apices are considered clear. IMPRESSION: 1. Considerable right peritonsillar edematous change with mild displacement of the airway to the left. 2. Small abscess located centrally within this edematous region measuring 1.1 x 0.9 cm. Hospital Course (1) Abscess, peritonsillar: per EREN William notes: Pt is 64 y/o M with PMH CAD s/p stent in 2008, HTN, dyslipidemia presented to ER with c/o sore throat x several days. Patient states several days ago started with sore throat with radiation to right ear and having right earache. Initially seen at PCP on 02/28/2020 with reported benign exam and pt had worsening sore throat and dysphagia and seen today and referred to ER. Denies fever/chills. In ER pt afebrile, vitals stable. Pt tolerating secretions and without SOB. WBC: 11 CT SOFT TISSUE NECK: 1. Considerable right peritonsillar edematous change with mild displacement of the airway to the left. 2. Small abscess located centrally within this edematous region measuring 1.1 x 0.9 cm. 2nd episode of tonsillar abscess evaluated by ENT Dr. Adame placed on IV Zosyn, Decadron 10mg IV q8h symptoms significantly improved Dr. Adame recommend Augmentin x 10 days, Medrol Dosepak ff up with ENT in 1-2 weeks, may need to consider tonsillectomy (2) CAD (coronary artery disease): no cardiac symptoms continue usual Carvedilol, Lisinopril, Aspirin (3) Hypertension: stable overall (4) Hyperlipidemia: continue Statin D/c home ff up with PCP next week ff up with ENT in 1-2 weeks plan of care discussed with patient in detail and at length all questions answered he is understanding, agreeable, comfortable with plan of care Total Time Total Time Spent Total Time Spent (In Minutes): 40 MINUTES Discharge Plan Discharge Items Patient Disposition: Home - Self-Care Reason For Visit: PERITONSILLAR ABSCESS Discharge Diagnosis: RIGHT TONSILLAR ABSCESS Activity: Resume your previous activity Activity Comment: GRADUALLY TOLERATED Non-emergency contact: Primary Care Provider Call non-emergency contact if: you have any medication questions and you have a fever Follow-up/Referrals: Ezequiel Adame MD [Physician] - Torito Perez MD [Primary Care Provider] - 03/06/20 10:40 am (03/06/2020 10:40 AM Provider Torito Perez MD [facility] ) Diet: Heart Healthy Diet Texture: Easy to Chew Addtl Attending Provider Instructions: PLEASE REVIEW YOUR NEW MEDICATION LIST AND FOLLOW INSTRUCTIONS CAREFULLY. AUGMENTIN- antibiotic MEDROL DOSEPACK- steroids to reduce swelling of the tonsil TAKE A PROBIOTIC DAILY FOR AT LEAST 3 WEEKS. DRINK PLENTY OF FLUIDS. RETURN TO THE ER IMMEDIATELY IF WITH WORSENING OF SYMPTOMS. CALL YOUR PRIMARY CARE PHYSICIAN OR ENT SPECIALIST, OR RETURN TO THE ER IMMEDIATELY IF WITH FEVER/CHILLS, NAUSEA/VOMITING, WEAKNESS, DIARRHEA. FOLLOW UP WITH ENT SPECIALIST DR. EZEQUIEL ADAME IN 1 WEEK. HER CLINIC WILL BE CALLING YOU FOR THE APPOINTMENT. FOLLOW UP WITH YOUR PRIMARY CARE PHYSICIAN SCHEDULED. Pending Studies at Discharge: No Stand-Alone Forms: My [facility], Smoking Cessation Medications and DC Order Prescriptions: New amoxicillin-pot clavulanate [Augmentin] 875-125 mg tablet 1 tab PO Q12H Qty: 20 RF: 0 methylprednisolone [Medrol (Ra)] 4 mg tablets,dose pack 4 mg PO UD Qty: 21 RF: 0 Continued meloxicam 15 mg Tablet 15 mg PO DAILY PRN (Reason: Pain) RF: 0 lisinopril 20 mg Tablet 20 mg PO BID RF: 0 nitroglycerin [Nitrostat] 0.4 mg Tablet, Sublingual 0.4 mg sublingual UD PRN (Reason: Chest Pain) RF: 0 aspirin 81 mg Tablet,Chewable 81 mg PO QAM RF: 0 atorvastatin 80 mg tablet 80 mg PO PM RF: 0 carvedilol 6.25 mg tablet 6.25 mg PO BID RF: 0 fluticasone propionate 50 mcg/actuation spray,suspension 2 spray INTRANASAL DAILY RF: 0 sildenafil (pulm.hypertension) [Revatio] 20 mg Tablet 20 mg PO UD PRN (Reason: Erectile Dysfunction) RF: 0 Discharge Orders: Discharge Order (Routine); Ordered 03/02/20 Ordered By: Lupillo Whitfield Admission Data Admit Date/Time: 03/01/20 15:06 Attending Provider: Lupillo Whitfield Admit Provider: Lupillo Whitfield Primary Care Provider: Torito Perez I. Other Providers: Lupillo Whitfield ; Ezequiel Adame Other Interventions: Discharge Summary Assessment (RN) Last Done: 03/02/20 10:50
== END 2020-03-02 12:38 | disposition home or self-care (01) | DRG 153 ==
LOC: ED 10:20 → 2W 15:06